=== PATIENT | female | born 1940 | race Caucasian/White ===

== ENCOUNTER 2016-07-04 09:26 | Outpatient (CLI) ==
[2016-05-11 12:45] VITALS: BMI 33.3
[2016-07-04 09:37] LABS: BILIRUBIN,URINE Negative (NEGATIVE); KETONES,URINE Negative (NEGATIVE); LEUKOCYTE ESTERASE ,URINE Negative (NEGATIVE); NITRITE,URINE Negative (NEGATIVE); PROTEIN,URINE 1+ (NEGATIVE); URINE, BLOOD Negative (NEGATIVE)
[2016-07-04 09:40] LABS: ADD URINE MICROSCOPIC YES
[2016-07-06 08:14] LABS: URINE CREATINE 35.4 mg/dL (Not Estab.)
== END 2016-07-04 09:27 | disposition home or self-care (01) ==
LOC: NONPT 09:26
PROVIDERS: ATTEND Family Medicine
DX: N19 Unspecified kidney failure (principal)
CPT/HCPCS: 81001; 82570; 84156

== ENCOUNTER 2016-12-03 09:32 | Outpatient (CLI) ==
[2016-05-11 12:45] VITALS: BMI 33.3
== END 2016-12-03 09:33 | disposition home or self-care (01) ==
LOC: RAD 09:32
PROVIDERS: ATTEND Family Medicine
DX: Z12.31 Encounter for screening mammogram for malignant neoplasm of breast (principal)

== ENCOUNTER 2017-03-21 13:05 | Outpatient (CLI) ==
[2016-05-11 12:45] VITALS: BMI 33.3
[2017-03-21 13:48] LABS: H. PYLORI STOOL ANTIGEN NEGATIVE (NEGATIVE); H.PYLORI STOOL AG INTERNAL QC INTERNAL QC VALID
== END 2017-03-21 13:06 | disposition home or self-care (01) ==
LOC: NONPT 13:05
PROVIDERS: ATTEND Emergency Medicine
DX: Z87.19 Personal history of other diseases of the digestive system (principal)
CPT/HCPCS: 87338

== ENCOUNTER 2017-03-25 11:15 | Outpatient (CLI) | payer OTHER ==
[2016-05-11 12:45] VITALS: BMI 33.3
--- NOTE | 2017-03-25 12:44 | CT ---
EXAM: CT Abdomen without contrast. CT Pelvis without contrast. HISTORY: Nausea, abdominal pain. COMPARISON: 05/11/2016. TECHNIQUE: Multiple axial images of the abdomen and pelvis were obtained without intravenous contras t. Images were reformatted in the coronal plane. FINDINGS: Please note that evaluation of the abdominal and pelvic structures is limited due to lack of intravenous contrast. L4-S1 posterior fusion and laminectomy changes noted electronic device seen in the left lower quadran t subcutaneous tissues with catheter coursing into the back. Lung bases are clear. The liver, gallbladder, pancreas, spleen, and adrenal glands demonstrate normal contour. Bilateral r enal cysts are present along with exophytic heterogeneous high-density lesion in the lateral right ki dney measuring 5.7 x 3.2 cm on axial image 58 which appears to have increased in size since the prior study. No hydronephrosis identified. The bowel is normal in course and caliber without evidence for obstruction or inflammatory process. The appendix is normal. Small fat-containing umbilical hernia noted. Uterus is absent. Urinary vania dder is unremarkable. No free fluid or free air identified. Atherosclerotic calcifications are pres ent IMPRESSION: 1. No acute abnormality within the abdomen or pelvis. 2. Suspect increasing size of an indeterminate right renal mass. Postcontrast CT recommended for fur ther characterization if the patient's renal function permits.
== END 2017-03-25 11:16 | disposition home or self-care (01) ==
LOC: RAD 11:15
PROVIDERS: ATTEND Emergency Medicine
DX: R10.9 Unspecified abdominal pain (principal)

== ENCOUNTER 2017-05-10 10:57 | Outpatient (CLI) ==
[2016-05-11 12:45] VITALS: BMI 33.3
[2017-05-10 11:46] LABS: BILIRUBIN,URINE Negative (NEGATIVE); KETONES,URINE Negative (NEGATIVE); LEUKOCYTE ESTERASE ,URINE Trace (NEGATIVE); NITRITE,URINE Negative (NEGATIVE); PH,URINE 5.5 (5-9); PROTEIN,URINE 2+ (NEGATIVE); URINE, BLOOD Negative (NEGATIVE)
[2017-05-10 11:49] LABS: ADD URINE MICROSCOPIC YES
== END 2017-05-10 10:58 | disposition home or self-care (01) ==
LOC: NONPT 10:57
PROVIDERS: ATTEND Emergency Medicine
DX: N19 Unspecified kidney failure (principal); Z79.899 Other long term (current) drug therapy
CPT/HCPCS: 81001; 82570; 84156

== ENCOUNTER 2017-11-20 13:29 | Outpatient (CLI) ==
[2016-05-11 12:45] VITALS: BMI 33.3
== END 2017-11-20 13:30 | disposition home or self-care (01) ==
LOC: NONPT 13:29
PROVIDERS: ATTEND Emergency Medicine
DX: Z51.81 Encounter for therapeutic drug level monitoring (principal); Z79.899 Other long term (current) drug therapy
CPT/HCPCS: 84439; 84443

== ENCOUNTER 2017-12-04 09:28 | Outpatient (CLI) | payer OTHER ==
[2016-05-11 12:45] VITALS: BMI 33.3
--- NOTE | 2017-12-04 10:43 | US ---
Exam: Gabriel-scale and spectral color Doppler evaluation with waveform analysis. Comparison: CT abdomen pelvis performed 03/25/2017. Reason for exam: Right upper quadrant pain. FINDINGS: The liver measures approximately 13.3 cm in length and 18.2 cm in the AP direction. There is normal antegrade portal venous flow without obvious ductal dilatation. The gallbladder wall is prominent in size measuring 0.34 cm. No obvious intraluminal stones are seen although evaluation is limited by overlying bowel gas. The common bile duct measures 0.6 cm The partially imaged pancreas appears grossly unremarkable. The right kidney is not well seen on the exam measuring approximately 11 cm in length. There is a complex appearing lesion in the right kidney measuring approximately 6.0 x 4.4 x 7.2 cm. There is a solid lesion versus parenchymal lobulation in the right kidney inferiorly measuring approx imately 2.8 x 4.1 x 3.9 cm. Left kidney was not evaluated. Impression: 1. Complex appearing structure in the right kidney measuring up to 7.2 cm without interval vascularit y. Imaging findings likely represent a complex cyst. Follow-up imaging is recommended to document s tability. 2. 4.1 cm solid nodule in the right kidney may represent a parenchymal lobulation but may also repres ent a solid mass. MRI is recommended for further characterization. 3. Mild gallbladder wall thickening. If imaging findings are concerning for gallbladder pathology, a HIDA scan may be performed. 4. Image interpretation is limited by overlying bowel gas and the patient's inability to follow comm ands during the exam
== END 2017-12-04 09:29 | disposition home or self-care (01) ==
LOC: RAD 09:28
PROVIDERS: ATTEND Emergency Medicine
DX: R10.11 Right upper quadrant pain (principal)

== ENCOUNTER 2017-12-13 15:58 | Outpatient (CLI) ==
[2016-05-11 12:45] VITALS: BMI 33.3
== END 2017-12-13 15:59 | disposition home or self-care (01) ==
LOC: NONPT 15:58
PROVIDERS: ATTEND Emergency Medicine
DX: E03.9 Hypothyroidism, unspecified (principal); E55.9 Vitamin D deficiency, unspecified
CPT/HCPCS: 80069; 82306; 83735; 83970; 84550; 85025

== ENCOUNTER 2017-12-13 19:31 | Outpatient (CLI) ==
[2016-05-11 12:45] VITALS: BMI 33.3
== END 2017-12-13 19:32 | disposition home or self-care (01) ==
LOC: LAB 19:31
PROVIDERS: ATTEND Emergency Medicine
DX: N28.9 Disorder of kidney and ureter, unspecified (principal)
CPT/HCPCS: 81001; 87086

== ENCOUNTER 2018-06-12 08:58 | Outpatient (CLI) ==
[2016-05-11 12:45] VITALS: BMI 33.3
== END 2018-06-12 08:59 | disposition home or self-care (01) ==
LOC: NONPT 08:58
PROVIDERS: ATTEND Family Medicine
DX: N19 Unspecified kidney failure (principal)
CPT/HCPCS: 81001; 82570; 84156

== ENCOUNTER 2018-09-18 09:06 | Outpatient (CLI) ==
[2016-05-11 12:45] VITALS: BMI 33.3
== END 2018-09-18 09:07 | disposition home or self-care (01) ==
LOC: NONPT 09:06
PROVIDERS: ATTEND Family Medicine
DX: N19 Unspecified kidney failure (principal)
CPT/HCPCS: 81001; 82570; 84156

== ENCOUNTER 2019-01-09 08:14 | Outpatient (CLI) ==
[2018-12-24 11:30] VITALS: BMI 31.2
== END 2019-01-09 08:15 | disposition home or self-care (01) ==
LOC: NONPT 08:14
PROVIDERS: ATTEND Family Medicine
DX: N28.9 Disorder of kidney and ureter, unspecified (principal); N19 Unspecified kidney failure
CPT/HCPCS: 81001; 82570; 84156

== ENCOUNTER 2019-01-22 14:33 | Outpatient (CLI) | payer OTHER ==
[2018-12-24 11:30] VITALS: BMI 31.2
== END 2019-01-22 14:34 | disposition home or self-care (01) ==
LOC: NONPT 14:33
PROVIDERS: ATTEND Family Medicine
DX: Z79.899 Other long term (current) drug therapy (principal)
CPT/HCPCS: 84443